=== PATIENT | female | born 1995 | race Hispanic/Latino ===

== ENCOUNTER 2021-11-15 20:13 | Emergency (ER) | payer OTHER ==
[2021-11-15] MEDS ORDERED: HYDROcodone/Acetaminophen 5/325 mg Tablet ONE (21:08)
[2021-11-15] MEDS ORDERED: Amoxicillin/Potassium Clav 875 MG TAB ONE (21:11)
[2021-11-15] MEDS ORDERED: Ondansetron ODT 4 MG TAB ONE (21:19)
== END 2021-11-15 21:30 | disposition home or self-care (01) ==
LOC: MADERS 20:13
DX: S09.21XA Traumatic rupture of right ear drum, initial encounter (principal); W22.8XXA Striking against or struck by other objects, initial encounter
CPT/HCPCS: 99282; Q0162